=== PATIENT | male | born 1965 | race Caucasian/White ===

== ENCOUNTER 2019-12-01 08:36 | Observation (INO) ==
[2019-12-01] MEDS ORDERED: Isovue-370 500 ML BOTTLE IVP ONE ×2 (08:49→08:52)
[2019-12-01 09:29] LABS: Basophils # 0.1 K/mcL (0.0-0.2); Basophils % 0.8 %; Eosinophils # 0.1 K/mcL (0.0-0.6); Eosinophils % 1.4 %; Hematocrit 38.5 % (37.5-50.1); Hemoglobin 12.6 g/dL (12.9-16.9); Immature Granulocytes % 0.3 % (0-4); Lymphocytes # 1.1 K/mcL (0.6-4.6); Lymphocytes % 16.5 %; Mean Corpuscular HGB Conc 32.7 g/dL (31.6-35.5); Mean Corpuscular Volume 82.4 fL (83.0-100.0); Mean Platelet Volume 10.5 fL (9.4-12.4); Monocytes # 0.5 K/mcL (0.0-1.3); Monocytes % 7.8 %; Neutrophils # 4.7 K/mcL (1.6-8.9); Platelet Count 258 K/mcL (140-400); Red Blood Count 4.67 M/mcL (4.19-5.50); Red Cell Distribution Width 13.6 % (11.5-14.5); Segmented Neutrophils % 73.2 %; White Blood Count 6.4 K/mcL (4.3-11.1)
[2019-12-01 09:34] LABS: INR 1.1; Prothrombin Time 12.8 Seconds (9.4-12.1)
[2019-12-01 09:37] LABS: Activated Partial Thrombo Time 35.8 Seconds (26.0-36.0)
[2019-12-01 09:56] LABS: Albumin 4.7 g/dL (3.5-5.7); Albumin/Globulin Ratio 1.6 (1.1-2.2); Bilirubin,Direct 0.1 mg/dL (0.0-0.2); Bilirubin,Indirect 0.4 mg/dL (0.0-1.0); Bilirubin,Total 0.5 mg/dL (0.3-1.0); Calcium 10.2 mg/dL (8.6-10.3); Globulin 2.9 g/dL (2.4-3.5); Potassium 3.9 mEq/L (3.5-5.1); Total Protein 7.6 g/dL (6.4-8.9); Troponin I 0.08 ng/mL (< 0.04)
[2019-12-01 10:04] LABS: Bilirubin,Urine Negative (Negative); Blood,Urine Negative (Negative); Clarity,Urine Clear (Clear); Color,Urine Yellow (Yellow); Glucose,Urine (UA) Normal (Normal); Ketones,Urine Negative (Negative); Leukocyte Esterase,Urine Negative (Negative); Nitrite,Urine Negative (Negative); PH,Urine 6.5 pH Units (5.0-8.0); Protein,Urine Negative (Neg-Trace); Specific Gravity,Urine 1.024 (1.010-1.025); Urobilinogen,Urine Normal (Normal)
[2019-12-01] MEDS ORDERED: 0.9 % Sodium Chloride 1,000 ML IVC ONE (10:25)
[2019-12-01] MEDS ORDERED: Aspirin 81 MG TAB.CHEW PO STA (11:53)
[2019-12-01] MEDS ORDERED: Naloxone 0.4 MG/ML INJ IVP PRN (14:08)
[2019-12-01] MEDS ORDERED: 0.9 % Sodium Chloride 1,000 ML IVC SCH (16:00)
[2019-12-01] MEDS ORDERED: *HR* Metoprolol 5 MG/5 ML VIAL IVP ONE (16:03)
[2019-12-01] MEDS ORDERED: *HR* Heparin 5,000 UNIT/ML VIAL IVP ONE (16:05)
[2019-12-01] MEDS ORDERED: *HR* Heparin 5,000 UNIT/ML VIAL IVP PRN ×2 (16:05)
[2019-12-01] MEDS ORDERED: Heparin 25,000 UNIT/250 ML D5W 25,000 UNIT/250 ML IV.SOLN IVC SCH (16:15)
[2019-12-01] MEDS: carvediloL 6.25 MG TABLET PO SCH (16:38)
[2019-12-01] MEDS: Acetaminophen 325 MG TABLET PO PRN (16:38)
[2019-12-01] MEDS: amLODIPine 5 MG TABLET PO SCH (16:39)
[2019-12-01 17:05] LABS: Hematocrit 37.6 % (37.5-50.1); Hemoglobin 12.6 g/dL (12.9-16.9); Mean Corpuscular HGB Conc 33.5 g/dL (31.6-35.5); Mean Corpuscular Hemoglobin 27.8 pg (28.0-33.3); Mean Platelet Volume 10.9 fL (9.4-12.4); Platelet Count 237 K/mcL (140-400); Red Blood Count 4.53 M/mcL (4.19-5.50); Red Cell Distribution Width 13.4 % (11.5-14.5); White Blood Count 6.8 K/mcL (4.3-11.1)
[2019-12-01 17:13] LABS: INR 1.1; Prothrombin Time 12.6 Seconds (9.4-12.1)
[2019-12-01 17:14] LABS: Heparin anti-factor XA UFH < 0.04 IU/mL (0.30-0.70)
[2019-12-01] MEDS ORDERED: *HR* Heparin 5,000 UNIT/ML VIAL SQ SCH (18:00)
[2019-12-01] MEDS ORDERED: *HR* HYDROcodone/Acet 5/325 mg TABLET PO ONE (20:43)
[2019-12-01] MEDS: gemfibroziL 600 MG TABLET PO SCH (21:12)
[2019-12-02 03:34] LABS: Chol/HDL Ratio 6.8 (0-4.9)
[2019-12-02 06:45] LABS: Estimated Average Glucose 114 mg/dl
[2019-12-02] MEDS ORDERED: Aspirin 81 MG TAB.CHEW PO SCH (09:00)
[2019-12-02] MEDS ORDERED: amLODIPine 5 MG TABLET PO SCH (09:00)
[2019-12-02] MEDS ORDERED: Aspirin Enteric Coated 81 MG Tablet PO SCH (09:00)
[2019-12-02 09:22] LABS: Basophils % 0.6 %; Eosinophils # 0.1 K/mcL (0.0-0.6); Eosinophils % 1.5 %; Hematocrit 41.5 % (37.5-50.1); Hemoglobin 13.8 g/dL (12.9-16.9); Immature Granulocytes % 0.2 % (0-4); Lymphocytes # 1.2 K/mcL (0.6-4.6); Lymphocytes % 18.1 %; Mean Corpuscular HGB Conc 33.3 g/dL (31.6-35.5); Mean Corpuscular Hemoglobin 27.5 pg (28.0-33.3); Mean Corpuscular Volume 82.8 fL (83.0-100.0); Mean Platelet Volume 10.8 fL (9.4-12.4); Monocytes # 0.4 K/mcL (0.0-1.3); Monocytes % 6.6 %; Neutrophils # 4.8 K/mcL (1.6-8.9); Platelet Count 289 K/mcL (140-400); Red Blood Count 5.01 M/mcL (4.19-5.50); Red Cell Distribution Width 13.7 % (11.5-14.5); White Blood Count 6.5 K/mcL (4.3-11.1)
[2019-12-02] MEDS: carvediloL 6.25 MG TABLET PO SCH (09:22)
[2019-12-02] MEDS: amLODIPine 5 MG TABLET PO SCH (09:22)
[2019-12-02] MEDS: gemfibroziL 600 MG TABLET PO SCH (09:22)
[2019-12-02] MEDS: Acetaminophen 325 MG TABLET PO PRN (09:23)
[2019-12-02 09:41] LABS: BUN/Creatinine Ratio 15 (6-26); Blood Urea Nitrogen 19 mg/dL (6-20); Calcium 9.7 mg/dL (8.6-10.3); Carbon Dioxide 21 mEq/L (23-29); Chloride 105 mEq/L (98-107); Glucose 132 mg/dL (70-105); Magnesium 1.9 mg/dL (1.6-2.6); Osmolality,Calculated 288 (280-300); Phosphorous 2.3 mg/dL (2.7-4.5); Potassium 3.9 mEq/L (3.5-5.1); Sodium 137 mEq/L (136-145); eGFR For African Americans > 60 (> 60); eGFR For Non-African Americans 59 (> 60)
[2019-12-02] MEDS ORDERED: lisinopriL 10 MG TABLET PO SCH (10:00)
[2019-12-02] MEDS ORDERED: Perflutren Lipid Microsphere 1.3 ML in 0.9 % Sodium Chloride 8.7 ML IVP ONE (10:16)
[2019-12-02 12:40] VITALS: BP 151/82
== END 2019-12-02 13:15 | disposition home or self-care (01) ==
LOC: EMEROOARM 08:36 → 3BNU 08:36 → SUATTDRO 14:08 → 3BNU 15:10
PROVIDERS: ADMIT Internal Medicine; ATTEND Internal Medicine